=== PATIENT | male | born 1970 | race African-American/Black ===

== ENCOUNTER → 2022-07-19 09:39 | Day surgery (SDC) | payer OTHER, SELFPAY ==
[2022-07-15 14:48] VITALS: BMI 32.1
--- NOTE | 2022-07-18 14:16 | P.CONAN_ITS ---
Documented by User: Franca Camejo NP 07/18/22 14:16 HPI - Anesthesia Eval Consult details Narrative: 52yo M for Colonoscopy [facility] Past Medical History Medical History (Updated 07/15/22 @ 14:47 by Aditi Cardozo RN) Elevated cholesterol History of COVID-19 Surgical History Surgical History (Updated 07/15/22 @ 14:47 by Aditi Cardozo RN) Hx of skin graft Social History Social History Patient Tobacco Use Status: Never used Tobacco Use of substances other than those prescribed or required for medical reasons: No Are you DNR?: No Advance Directives: No Advance Directives Information Provided: Yes Meds Allergies Allergy/AdvReac Type Severity Reaction Status Date / Time No Known Allergies Allergy Verified 07/15/22 14:48 Home Medications Medication Instructions Recorded Confirmed Last Taken Type No Known Home Meds 07/15/22 07/15/22 Unknown History Exam Exam Date and Time: July 18, 2022 1416 Height,Weight and Vital Signs: Height 5 ft 10 in Weight 101.605 kg Assessment and Plan Assessment Anesthesia Assessment: Chart Reviewed Documented by User: Jose Antonio Barahona MD 07/19/22 09:56 [facility] Past Medical History Medical History (Updated 07/15/22 @ 14:47 by Aditi Cardozo RN) Elevated cholesterol History of COVID-19 Family History Family history of problems with anesthesia: No Surgical History Surgical History (Updated 07/15/22 @ 14:47 by Aditi Cardozo RN) Hx of skin graft History of Problems with Anesthesia: No Social History Social History Patient Tobacco Use Status: Never used Tobacco Use of substances other than those prescribed or required for medical reasons: No Are you DNR?: No Advance Directives: No Advance Directives Information Provided: Yes Meds Allergies Allergy/AdvReac Type Severity Reaction Status Date / Time No Known Allergies Allergy Verified 07/15/22 14:48 Home Medications Medication Instructions Recorded Confirmed Last Taken Type No Known Home Meds 07/15/22 07/15/22 Unknown History Exam Airway Mallampati Class: II TM Dist: >3cm Assessment and Plan Assessment Anesthesia Assessment: Anesthesia Plan Discussed Final Anesthetic Review Family History of Problems with Anesthesia: No History of Problems with Anesthesia: No NPO: Yes ASA Class: I Final Preanesthetic Review: No Changes in Pt Med Stat, Meds/Allgs Chart Reviewed, Consent Obtained/Reviewed and Anes Risks/Benef Reviewed Patient Risk: Low Procedure Risk: Low Anesthetic Plan Anesthetic Plan: MAC: Disposition: Standard PACU
[2022-07-19 09:47] VITALS: BMI 31.5
[2022-07-19 09:52] VITALS: BP 109/72; PULSE 68; RESP 16; TEMP 36.4; O2SAT 96
[2022-07-19] MEDS: Lactated Ringers 1,000 ML 100 ML IVCONT (10:21)
--- NOTE | 2022-07-19 10:33 | MHC.SHP ---
Pre-Procedural Eval Section A Date of Service: 07/19/22 The patient is an INPATIENT: No Changes since office visit: No Cold of Flu in the past 2 weeks, No New Medical Problems, No Changes in Medication and No Patient answered all questions The History & Physical has been completed within 30 days and I have reviewed it.: Yes Section B Chief Complaint: Encounter for screening for malignant neoplasm of Allergies: Allergies Allergy/AdvReac Type Severity Reaction Status Date / Time No Known Allergies Allergy Verified 07/15/22 14:48 Plan I have reviewed the history and physical and performed a pertinent physical examination on my patient. No changes have occurred unless specified.
--- NOTE | 2022-07-19 11:11 | P.BOP_ITS ---
Brief Operative Note Date of Service: 07/19/22 Pre-op diagnosis: screening Post-op diagnosis: same (incomplete colonoscopy) Procedure: colonoscopy to r colon Surgeon: Helder Torres Anesthesia: MAC Was an [employer] used for this Procedure?: No Estimated blood loss (mL): 0 Pathology: none sent Condition: stable Disposition: PACU
[2022-07-19 11:18] VITALS: BP 107/40; PULSE 88; RESP 18; TEMP 36.4; O2SAT 98
--- NOTE | 2022-07-19 11:19 | ECG_ITS ---
Test Reason : rhythm change Blood Pressure : / mmHG Vent. Rate : 097 BPM Atrial Rate : 000 BPM P-R Int : 000 ms QRS Dur : 096 ms QT Int : 342 ms P-R-T Axes : 000 011 012 degrees QTc Int : 434 ms Atrial fibrillation with a competing junctional pacemaker with premature ventricular or aberrantly conducted complexes Nonspecific T wave abnormality Abnormal ECG No previous ECGs available Referred By: Jose Antonio Barahona Electronically Signed By:BETH MILLER
[2022-07-19 11:33] VITALS: BP 116/59; PULSE 86; RESP 15; TEMP 36.4; O2SAT 99
[2022-07-19 11:48] VITALS: BP 114/56; PULSE 87; RESP 14; O2SAT 99
[2022-07-19 12:03] VITALS: BP 115/61; PULSE 85; RESP 12; TEMP 36.4; O2SAT 99
--- NOTE | 2022-07-20 00:31 | OP_ITS ---
SURGEON: Helder Torres MD INDICATIONS: Colon cancer screening. PREOPERATIVE DIAGNOSIS: POSTOPERATIVE DIAGNOSIS: PROCEDURE PERFORMED: Colonoscopy to the right colon. ESTIMATED BLOOD LOSS: COMPLICATIONS: ANESTHESIA: Monitored anesthesia care. ASSISTANTS: SPECIMENS: DESCRIPTION OF PROCEDURE: A history and physical performed. The risks and benefits of the procedure were explained to the patient. Informed consent was obtained. The procedure was performed on 07/19/2022. The Olympus pediatric videocolonoscope was introduced into the rectum and advanced to the right colon. The scope could be advanced no further due to looping in the sigmoid despite application of abdominal wall pressure and repositioning the patient. Examination was performed. The scope was removed. It is estimated that 80% of the colon was examined. He tolerated the procedure well and was returned to the recovery room in stable condition. FINDINGS: There was an extremely poor prep with a large amount of liquid and some undigested vegetable material, which coated the mucosa and made suctioning difficult. This was particularly noticeable in the hepatic flexure, the descending, sigmoid, and rectum. Exam was inadequate for detection of lesions. Retroflexed examination was obscured by retained liquid stool that could not be suctioned due to clogging of the scope. The procedure was extended and difficult. During the procedure, the patient was noted to have arrhythmias that were evaluated by the Anesthesia Department. IMPRESSION: Incomplete colonoscopy, poor prep. RECOMMENDATION: Repeat colonoscopy should be considered with a 2 day prep in 6-12 months. MD JEN Duron/[facility] / [id number]
== END | disposition home or self-care (01) ==
PROVIDERS: PCP Internal Medicine; Visit Provider Internal Medicine Gastroenterology
PROC: 0DJD8ZZ Inspection of Lower Intestinal Tract, Via Natural or Artificial Opening Endoscopic (ICD-10-PCS; CPT 45378; principal; 2022-07-19 10:30)
DX: Z12.11 Encounter for screening for malignant neoplasm of colon (principal); Z91.199 Patient's noncompliance with other medical treatment and regimen due to unspecified reason; I49.8 Other specified cardiac arrhythmias; E78.00 Pure hypercholesterolemia, unspecified; Z86.16 Personal history of COVID-19
CPT/HCPCS: 45378; 93005; J3010

== ENCOUNTER 2022-07-19 12:22 | Emergency (ER) | payer OTHER, SELFPAY ==
[2022-07-19 12:33] VITALS: BP 101/64; PULSE 80; RESP 16; TEMP 36.6; O2SAT 97; BMI 31.5
--- NOTE | 2022-07-19 12:35 | ECG_ITS ---
Test Reason : TACHYCARDIA Blood Pressure : / mmHG Vent. Rate : 075 BPM Atrial Rate : 075 BPM P-R Int : 188 ms QRS Dur : 088 ms QT Int : 352 ms P-R-T Axes : 044 016 045 degrees QTc Int : 393 ms Normal sinus rhythm with sinus arrhythmia Early repolarization Normal ECG When compared with ECG of 19-JUL-2022 11:16, Normal sinus rhythm has replaced Atrial fibrillation Referred By: Ysabel Harden Electronically Signed By:BETH MILLER
--- NOTE | 2022-07-19 12:38 | ED_ITS ---
HPI - Arrhythmia/Palpitations General Chief Complaint: Arrhythmia/Palpitations Stated Complaint: tachycardia Time Seen by Provider: 07/19/22 12:27 Source: patient Mode of arrival: wheelchair Limitations: no limitations History of Present Illness HPI narrative: 52 yo male with history of HLD who presents to the ER from PACU for evaluation of new onset rapid atril fibrillation while he was in routine colonoscopy today. He reportedly was found to be tachycardic 150s during the exam today. He was given Esmolol and EKG was performed showing rapid afib 110s. He was brought to the ER for further evaluation. He reports only a mild headache. He said when he woke up in recovery he had no palpitations, chest pain, SOB. Denies history of afib in the past. He arrives to the ER on NSR HR 80s. MD complaint: irregular heart beat and atrial fibrillation Onset (ago): minute(s) Duration: now resolved Severity: mild Context: other (anesthesia related) Associated symptoms: denies other symptoms Related Data Home Medications Medication Instructions Recorded Confirmed No Known Home Meds 07/15/22 07/15/22 Allergies Allergy/AdvReac Type Severity Reaction Status Date / Time No Known Allergies Allergy Verified 07/15/22 14:48 Review of Systems Review of Systems: Constitutional: No Fever, No Chills ENT/Mouth: No sore throat, No Rhinorrhea, No Swallowing Difficulty Cardiovascular: No Chest Pain, No SOB, No Orthopnea, No Edema Respiratory: No Cough, No Sputum, No Wheezing, No dyspnea, No palpitations Gastrointestinal: No Nausea, No Vomiting, No Diarrhea, No abdominal Pain Genitourinary: No Dysuria, No Urinary Frequency, No Hematuria Musculoskeletal: No joint pain, No Myalgias Skin: No Skin Lesions, No rash Neuro: No Weakness, No Numbness, No Dizziness, No Headache Heme/Lymph: No Bruising, No Lymphadenopathy PMFSH Past Medical History Medical History (Updated 07/19/22 @ 12:47 by JOHNNY Mendenhall) Elevated cholesterol History of COVID-19 Surgical History (Updated 07/15/22 @ 14:47 by Aditi Cardozo RN) Hx of skin graft Social History Social History Patient Tobacco Use Status: Never used Tobacco Physical Exam Vital Signs: Vital Signs: Last Vital Signs Temp 97.8 F 07/19/22 12:33 Pulse 80 07/19/22 12:33 Resp 16 07/19/22 12:33 BP 101/64 07/19/22 12:33 Pulse Ox 97 07/19/22 12:33 O2 Del Method 07/19/22 12:33 BMI result Body Mass Index 31.5 Appearance: Alert. Oriented X3. No acute distress. Eyes: Pupils equal, round and reactive to light. ENT: Pharynx normal. Neck: Normal inspection. Neck supple. CVS: Normal heart rate and rhythm. Pulses normal. Respiratory: No respiratory distress. Breath sounds normal. Abdomen: Soft and nontender. +BS x4 Skin: Skin warm and dry. Normal skin color. Normal skin turgor. No rashes. Extremities: No lower extremity edema. Neuro: Oriented X 3. No motor deficit. No sensory deficit. Course Course Course Narrative: 52 yo male with history of recently diagnosed HLD, diet controlled for now who presents with new onset rapid afib while in colonoscopy today, back in sinus after esmolol. CHADSVASC is 0, no recommendation for anticoagulation at this time. Will repeat EKG and monitor on telemetry. Anticipate d/c home with outpatient cardiology follow up. Reevaluation(s) Reevaluation #1: Remains in sinus and asymptomatic, while monitored in the ER. Case d/w Dr. Burgos - plan for d/c home on asa 81 and cardiology follow up. patient agrees with plan. stable for d/c. MDM - Arrhythmia/Palpitations Medical Records Attestation: I reviewed the patient's medical records. Lab Data Attestation: I reviewed the patient's lab results. ECG Data Attestation: I personally reviewed and interpreted this ECG as follows: ECG interpretation date: 07/19/22 ECG interpretation time: 13:01 Prior ECG tracings: not available for review Interpretation: sinus rhythm with sinus arrythmia, HR 75 bpm, Q wave present in lead III, normal AK interval, normal QRS, no ST segment elevations or depressions Discharge Plan Discharge Clinical Impression: Paroxysmal A-fib Patient Disposition: Home, Self-Care Instructions: A-fib (Atrial Fibrillation) (DC) Additional Instructions: Your stroke risk is low - no anticoagulation is recommended at this time Recommend following up with Cardiology for further evaluation - name and number below. call for an appointment Recommend you start a baby aspirin in the mean time If you develop new or worsening symptoms call 911 or come back to the ER for further evaluation. Prescriptions: No Action No Known Home Meds Referrals: [facility] [place] [facility] [Provider Group] (PAF)
[2022-07-19] MEDS: Acetaminophen 325 MG TABLET 975 MG PO (13:01)
== END 2022-07-19 13:48 | disposition home or self-care (01) ==
PROVIDERS: Emergency Provider Emergency Medicine Emergency Medical Services; PCP Internal Medicine
DX: I48.0 Paroxysmal atrial fibrillation (principal); R00.2 Palpitations; R00.0 Tachycardia, unspecified
CPT/HCPCS: 93005; 99283; 99284

== ENCOUNTER 2025-06-16 10:35 | Outpatient (REF) | payer OTHER, SELFPAY ==
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
--- OUTSIDE RECORDS SUMMARY | 2025-06-16 12:06 | XMS_ITS | Clinical Summary ---
Author Organization [employer] [facility] Address [address] [place] [phone] Phone Care Team Providers Care Wood Engraver Name Role Phone Italo Gilbert MD Primary Care Provider [phone] Allergies No known active allergies Medications No known medications Active Problems Problem Noted Date Diagnosed Date Positive blood cultures 02/21/2021 Assessment & Plan (02/23/2021 6:37 PM EDT): More likely contaminant, with each bottle growing staph hominis and repeat blood cultures negative --Antibiotics have been stopped Pneumonia of both lungs due to infectious organi sm 02/20/2021 COVID-19 02/19/2021 Assessment & Plan (02/23/2021 6:36 PM EDT): Acute respiratory failure secondary to COVID-19 infection. Chest x-ray shows bilateral pulmonary opacities consistent with COVID-19 pneumonia. He continues to have a significant oxygen requirement of 3 L with exertional hypoxia and shortness of breath. --Continue remdesivir day #4/5, dexamethasone day #5 --Following LFTs, slight rise today --O2 support as needed --Throat spray for pharyngeal pain Family History Medical History Relation Comments Arthritis Father Diabetes Mother Relation Status Comments Father Alive Mother Alive Social History Tobacco Use Types Packs/Day Years Used Date Smoking Tobacco: Never Smokeless Tobacco: Never Alcohol Use Standard Drinks/Week Comments Not Currently 0 (1 standard drink = 0.6 oz pur e alcohol) Education Answer Date Recorded Are you interested in more education? Not on kayli e 02/07/2023 Are you concerned about learning? Not on file 02/07/2023 No 02/07/2023 No 02/07/2023 Digital Access Answer Date Recorded No 03/08/2023 No 03/08/2023 No 03/08/2023 Reliable internet access at home? Not on file 03/08/2023 Device with a working camera? Not on file Sex and Gender Information Value Date Recorded Sex Assigned at Male 07/23/2022 7:16 PM EDT Legal Sex Male 9:09 AM EDT Gender Identity Male 07/23/2022 7:16 PM EDT Sexual Orientation Not on file Last Filed Vital Signs Vital Sign Reading Time Taken Comments Blood Pressure 129/74 07/23/2022 10:00 PM EDT Pulse 62 07/23/2022 10:00 PM EDT Temperature 37.2 C (99 F) 07/23/2022 7:14 PM EDT Respiratory Rate 12 07/23/2022 10:00 PM EDT Oxygen Saturation 100% 07/23/2022 10:00 PM EDT Inhaled Oxygen Concentration - - Weight 99.8 kg (220 lb) 07/23/2022 7:14 PM EDT Height 177.8 cm (5' 10 ) 07/23/2022 7:14 PM EDT Body Mass Index 31.57 07/23/2022 7:14 PM EDT Plan of Treatment Health Maintenance Due Date Last Done Comments Adult Td,Tdap Booster 1971 LIPID PANEL 1971 DEPRESSION SCREENING 1983 HEPATITIS C SCREENING 1989 HIV ONE-TIME SCREENING (18-6 5 YEARS) 1989 COLOGUARD 2016 COLONOSCOPY 2016 COLORECTAL CANCER SCREENING 2016 FIT TEST 2016 FOBT 2016 SIGMOIDOSCOPY 2016 VIRTUAL COLONOSCOPY 2016 PNEUMOCOCCAL VACCINES (50+ years) (1 of 1 - PCV) 2021 ZOSTER VACCINES (1 of 2) 2021 INFLUENZA VACCINE (#1) 2025 COVID-19 VACCINE (3 - 2024-2 6 season) 2025 04/09/2021, 03/19/2021 SCREENING FOR DIABETES 07/23/2025 07/23/2022 SMOKING STATUS SCREENING (On ce After 26 Yrs) Completed 07/23/2022 HEPATITIS A VACCINES Aged Out No long er eligible based on patient's age to complete this topic HIB VACCINES Aged Out No longer eligi ble based on patient's age to complete this topic MENINGOCOCCAL VACCINES (ACWY) Aged Out No longer eligible based on patient's age to complete this topic MENINGOCOCCAL VACCINES (B) Aged Out N o longer eligible based on patient's age to complete this topic Medical Devices Not on file Insurance [employer] Advance Directives For more information, please contact: [phone] (9AM - 5PM Radha/[facility], Friday-Friday) * Full Code (Latest Code Status on File) Date Activated Date Inactivated Comments 02/20/2021 12:05 AM Question Answer Comments Code Status Confirmed With: Patient Care Teams Wood Engraver Relationship Specialty Start Date End Date Italo Gilbert MD [address] [place] [phone] PCP - General Internal Medicine 07/23/22 Additional Source Comments The information contained in this document represents components of the legal health record. It is not the complete legal health record.[facility]
--- OUTSIDE RECORDS SUMMARY | 2025-06-16 12:07 | XMS_ITS | Clinical Summary ---
Author Organization [employer] Address [address] [facility] [address] [place] [address] Care Team Providers Care Hot Metal Crane Operator Name Role Phone Rosalio Lopez MD Primary Care Provide r Allergies Active Allergy Reactions Criticality Noted Date Comments Propofol Palpitations Low 06/16/2025 Medications terazosin (Hytrin) 1 MG capsuleIndicati ons:Urinary urgency Take 1 capsule (1 mg) by mouth at bedtime. 30 capsule 11 06/16/2025 Active Active Problems Problem Noted Date Diagnosed Date Hypercholesterolemia 06/16/2025 Assessment & Plan (06/16/2025 10:17 AM EDT): - Previously noted high cholesterol during last visit with prior physician - No medication taken for cholesterol, managed with lifestyle changes Plan: Repeat Lipid profile Urinary urgency 06/16/2025 Assessment & Plan (06/16/2025 10:18 AM EDT): - Onset of urinary urgency, described as strong urge to urinate with pressure, occurring both day and night - No incontinence or accidents, but concern about possible leakage if unable to reach restroom quickly - 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 - Prescribed terazosin 1 mg daily. Ordered urinalysis and PSA blood test. Advised follow-up visit. Referral to urology discussed if symptoms persist or worsen. Preventative health care 06/16/2025 Assessment & Plan (06/16/2025 10:21 AM EDT): PSA ordered Colonoscopy: incomplete due to poor [...] interested. Scheduled follow-up physical in three months. Chronic jaw pain 06/16/2025 Assessment & Plan (06/16/2025 10:18 AM EDT): Chronic jaw discomfort possibly related to temporomandibular joint (TMJ) disorder. - Ordered plain film x-ray of the jaw. Recommended dental evaluation for further assessment and possible Panorex imaging. Advised consideration of mouth guard if TMJ confirmed. History of atrial fibrillation 06/16/2025 Assessment & Plan (06/16/2025 10:24 AM EDT): Patient developed A.fib during colonoscopy procedure according to ER notes GI requested Cardiology clearance prior to repeat colonoscopy that was incomplete Encounters Date Type Department Care Team Description 06/16/2025 9:30 AM EDT Office Visit [facility] [address] [place] [phone] Rosalio Lopez MD Urinary urgency (Primary Dx); Chronic jaw pain; Hypercholesterolemia; History of atrial fibrillation; Preventative health care; Colon cancer screening; Encounter for immunization 06/16/2025 Travel 06/09/2025 Patient Outreach [facility] [address] [place] [address] Rosalio Lopez MD Pre-visit Planning (SDOH will need to be completed in office. ) 06/09/2025 Travel 04/08/2025 Telephone [facility] [address] [place] [address] Rosalio Lopez MD new patient visit from Last 3 Months Immunizations Immunization Administration Dates Next Due Pneumococcal Conjugate PCV 20 06/16/2025 Social History Tobacco Use Types Packs/Day Years [...] t he electric, gas, oil or water company threatened to shut off services in your [...] Orientation Straight 03/08/2025 2: 18 PM EDT Last Filed Vital Signs Vital Sign Reading [...] Mass Index 32.71 06/16/2025 9:41 AM EDT Plan of Treatment Health Maintenance Due Date Last Done Comments CT Colonography 1971 Colonoscopy 1971 Colorectal Cancer Screening 1971 FIT DNA/Cologuard 1971 FIT 1971 FOBT 1971 HIV Screening 1971 Lipid Panel 1971 Sigmoidoscopy 1971 Hepatitis C Screening 1989 Hepatitis B Vaccines (1 of 3 - 19+ 3-dose series) 1990 Zoster Vaccines (1 of 2) 2021 Influenza Vaccine (#1) 2025 Alcohol/Substance Use Screening 06/16/2026 06/16/2025 Depression Screening 06/16/2026 06/16/2025, 06/16/2025 Disability Screening 06/16/2026 06/16/2025 SDOH Screening 06/16/2026 06/16/2025 Tobacco Screening 06/16/2026 06/16/2025 DTaP/Tdap/Td Vaccines (2 - T d or Tdap) 06/13/2034 06/13/2024 RSV Patients and Patients Aged 60 years or older (1 - 1-dose 75+ series) 2046 COVID-19 Vaccine Completed 06/13/2024, 04/09/2021, 03/19/2021 Pneumococcal Vaccine: 50+ Years Completed 06/16/2025 HIB Vaccines Aged Out No longer eligi ble based on patient's age to complete this topic HPV Vaccines Aged Out No longer eligi ble based on patient's age to complete this topic Hepatitis A Vaccines Aged Out No long er eligible based on patient's age to complete this topic IPV Vaccines Aged Out No longer eligi ble based on patient's age to complete this topic Meningococcal B Vaccine Aged Out No l onger eligible based on patient's age to complete this topic Meningococcal Vaccine Aged Out No stacy damián eligible based on patient's age to complete this topic RSV under 20 months Aged Out No longe r eligible based on patient's age to complete this topic Rotavirus Vaccines Aged Out No longer eligible based on patient's age to complete this topic Insurance [facility] 3 Care Teams Hot Metal Crane Operator Relationship Specialty Start Date End Date Rosalio Lopez MD [address] [place] [address] PCP - General Internal Medicine 06/16/25
--- OUTSIDE RECORDS SUMMARY | 2025-06-16 12:07 | XMS_ITS | Encounter Summary ---
Author Organization [employer] Address [address] [place] [address] Care Team Providers Care Power Reactor Operator Name Role Phone Rosalio Lopez MD Primary Care Provide Encounter Details Date Type Department Care Team (Latest Contact Info) Description 06/16/2025 Travel Social History Tobacco Use Types Packs/Day Years Used Date Smoking Tobacco: Never Smokeless Tobacco: Never Alcohol Use Standard Drinks/Week Comments Never 0 (1 standard drink = 0.6 oz pur e alcohol) Depression Answer Date Recorded Patient Health Questionnaire-9 Score 0 06/16/2025 Patient Health Questionnaire-9 Score 0 06/16/2025 Last PHQ-9: Questionnaire Data Not on file 0 06/16/2025 Housing Stability Answer Date Recorded What is your housing situation today? I have nathan sing 06/16/[address] you li [...] PM EDT documented as of this encounter Functional Status * Over the [...] Senior [place] documented as of this encounter Plan of Treatment Not on file documented as of this encounter Visit Diagnoses Not on filedocumented in this encounter Additional Health Concerns Assessment Noted Time PHQ-9 Depression Total Score: 0 06/16/20 9:43 AM EDT documented as of this encounter Care Teams Power Reactor Operator Relationship Specialty Start Date End Date Rosalio Lopez MD [address] [place] [phone] PCP - General Internal Medicine 06/16/25 documented as of this encounter
[2025-06-16 14:04] LABS: Alanine Aminotransferase 23 U/L (0-40); Albumin Level 4.2 g/dL (3.5-5.0); Alkaline Phosphatase 72 U/L (39-117); Anion Gap 10 (12-20); Aspartate Amino Transferase 33 U/L (5-37); Blood Urea Nitrogen 9 mg/dL (9-16); Calcium 8.9 mg/dL (8.4-10.2); Carbon Dioxide 27 mmol/L (22-29); Chloride 106 mmol/L (96-108); Cholesterol 184 mg/dL (<200); Estimated Glomerular Filt Rate > 60; HDL Cholesterol 30 mg/dL (>40); Potassium 3.7 mmol/L (3.3-5.1); Sodium 139 mmol/L (135-145); Total Protein 7.6 g/dL (6.5-8.0); Triglycerides 141 mg/dL (<150)
[2025-06-17 04:28] LABS: HIV Num 1 0.05 S/CO (0.00-0.99); ~HepC Num1 0.11 S/CO (0.00-0.79); ~Hepatitis C Antibody Nonreactive (Nonreactive)
== END 2025-06-16 10:36 | disposition home or self-care (01) ==
LOC: HO.HHCL 10:35
PROVIDERS: PCP Internal Medicine; Visit Provider Internal Medicine
DX: Z00.00 Encounter for general adult medical examination without abnormal findings (principal); E78.00 Pure hypercholesterolemia, unspecified; R39.15 Urgency of urination
CPT/HCPCS: 36415; 80053; 80061; 84153; 86803; 87389

== ENCOUNTER 2025-06-21 11:42 | Outpatient (REF) | payer OTHER, SELFPAY ==
--- OUTSIDE RECORDS SUMMARY | 2025-06-16 09:30 | XMS_ITS | Encounter Summary ---
Author Organization [employer] Address [address] [facility] [address] [place] [address] Care Team Providers Care Highway Worker Name Role Phone Rosalio Lopez MD Primary Care Provide r Reason for Referral * Consultation (Routine) - Authorized Specialty Diagnoses / Procedures Referred By Skinny walker Referred To Contact Cardiology Diagnoses History of atrial fibrillation Rosalio Lopez MD [address] [place] [address] Phone: tel: fax: [facility] Referral ID Status Reason Start Date Expiration Date Visits Requested Visits Authorized [id number] Authorized Specialty Services Required 06/16/2025 06/16/2026 1 1 * Consultation (Routine) - Closed Specialty Diagnoses / Procedures Referred By Skinny walker Referred To Contact Gastroenterology Diagnoses Colon cancer screening Rosalio Lopez MD [address] [place] [address] Phone: tel: fax: Helder Torres MD [address] [place] [address] Phone: tel: fax: Referral ID Status Reason Start Date Expiration Date V isits Requested Visits Authorized [id number] Closed Specialty Services Required 06/16/2025 06/16/2026 1 1 Reason for Visit * Reason Comments new pt Encounter Details Date Type Department Care Team (Late st Contact Info) Description 06/16/2025 9:30 AM EDT Office Visit [facility] [address] [place] [address] Rosalio Lopez MD [address] [place] [address] Urinary urgency (Primary Dx); Chronic jaw pain; [...] t he electric, gas, oil or water [employer] threatened to shut off services in your [...] original note were not included. SUBJECTIVE Blayne Herron is a 54 y.o. male who presents for new pt. 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, requiring timing of fluid intake - [...] Type Priority Associated Diagnoses Orde r Schedule XR panorex Imaging Routine Chronic jaw pain Ordered: 06/16/2025 Scheduled Referrals Name Type Priority Associated Diagnoses Order Schedule Referral to Gastroenterology Outpatient Referral Routine Colon cancer screening Expected: 06/16/2025 (Approximate), Expires: 06/16/2026 Referral to Cardiology Outpatient Referral Routine History of atrial fibrillation Expected: 06/16/2025 (Approximate), Expires: 06/16/2026 documented as of this encounter Procedures Procedure Name Priority Date/Time Associated Diagnosis Comments URINALYSIS, COMPLETE, WITH REFLEX TO CULTURE Routine 06/21/2025 11:46 AM EDT Urinary urgency PSA, SCREEN Routine 06/16/2025 11:21 AM EDT Urinary urgency HEPATITIS C AB W/REFL TO HCV RNA, QN, PCR Routine 06/16/2025 11:21 AM EDT Preventative health care HIV 1/2 ANTIGEN/ANTIBODY, FOURTH GENERATION W/RFL Routine 06/16/2025 11:21 AM EDT Preventative health care LIPID PANEL, STANDARD Routine 06/16/2025 11:21 AM EDT Hypercholesterolem ia COMPREHENSIVE METABOLIC PANEL Routine 06/16/2025 11:21 AM EDT Hypercholesterolem ia documented in this encounter Results * Urinalysis, Complete, with Reflex to Culture (06/21/2025 11:46 AM EDT) Color Urine Yellow [facility] Appearance Urine Clear [facility] PH 8.5 5.0 - 9.0 [facility] Glucose Urine UA Negative Negative mg/dL [facility] Urine Blood Negative Negative [facility] Specific [place] - Urine 1.010 1.005 - 1.025 [facility] Urine Protein Negative Neg-Trace mg/dL [facility] Urine Ketones Negative Negative mg/dL [facility] Nitrite Urine Negative Negative [facility] Leukocyte Esterase Urine Negative Negative [facility] RBC Urine 0-2 0 - 2 /HPF [facility] Urine WBC 0-5 0 - 5 /HPF [facility] Urine Squamous Epithelial Cell 0-2 0 - 2 /HPF [facility] Urine Bacteria None Seen None Seen [facility] Hyaline Casts, Urine 0-2 0 - 2 /LPF [facility] Urine 06/21/2025 11:4 6 AM EDT 06/21/2025 1:18 PM EDT Narrative [facility] - 06/21/2025 1:36 PM EDT Urine, Clean Catch us Rosalio Henson MD LAB URINE ORDERABLES Final Result [facility] [address], [place] [phone] * HIV-1/2 Antigen and Antibodies, Fourth Generation, with Reflexes (06/16/2025 11:21 AM EDT) HIV AB/AG Nonreactive Nonreactive [facility] Comment:HIV-1 p24 Ag and/or HIV-1/HIV-2 Ab not detected.A test result that is nonreactive does not exclude thepossibility of exposure to or infection with HIV-1 and/orHIV-2. Nonreactive results in this assay for individualswith prior exposure to HIV-1 and/or HIV-2 may be due toantigen and antibody levels that are below the limit ofdetection of this assay.The [employer] HIV Ag/Ab Combo assay result andsupplemental assay results should be interpreted inconjunction with the patient's clinical presentation,history and other laboratory results. If the results areinconsistent with clinical evidence, additional testing issuggested to confirm the result. Blood Venous blood specimen / Unknown 06/16/2025 11:21 AM EDT 06/16/2025 1:28 PM EDT Rosalio Henson MD LAB BLOOD ORDERABLES Final Result Performing Organization Address City/[facility]/ZIP Co de Phone Number [facility] [address] [place] [phone] * Hepatitis C Antibody with Reflex to HCV, RNA, Quantitative, Real-Time PCR (06/16/2025 11:21 AM EDT) Pathologist [facility] Hepatitis C Antibody Nonreactive Nonreactive [facility] Comment:Antibodies to HCV no t detected; does not exclude early acuteHCV infection. Blood Venous blood specimen / Unknown 06/16/2025 11:21 AM EDT 06/16/2025 1:28 PM EDT Rosalio Henson MD LAB BLOOD ORDERABLES Final Result Performing Organization Address [facility] Co de Phone Number [facility] [address] [place] [phone] * PSA, Screen (06/16/2025 11:21 AM EDT) Pathologist [facility] PSA, Total 0.31 <0.05 - 4.0 ng/mL [facility] Comment:PSA methodology: Abb mansoor Alialyssaty i ChemiluminescentMicroparticle Immunoassay (CMIA) Blood Venous blood specimen / Unknown 06/16/2025 11:21 AM EDT 06/16/2025 1:28 PM EDT us Rosalio Henson MD LAB BLOOD ORDERABLES Final Result [facility] [address] [place] [phone] * (ABNORMAL) Comprehensive Metabolic Panel (06/16/2025 11:21 AM EDT) Sodium 139 135 - 145 mmol/L [facility] Potassium 3.7 3.3 - 5.1 mmol/L [facility] Chloride 106 96 - 108 mmol/L [facility] Carbon Dioxide 27 22 - 29 mmol/L [facility] Anion Gap 10(L) 12 - 20 [facility] Urea Nitrogen (BUN) 9 9 - 16 mg/dL [facility] Creatinine, Serum 1.07 0.5 - 1.4 mg/dL [facility] Estimated Glomerular Filt Rate >60 [facility] Comment:Chronic Kidney Disea se: Estimated GFR < 60 mL/min/1.00d8Mtalzy Kidney Disease: Estimated GFR < 15 mL/min/1.73m2 Glucose 90 60 - 115 mg/dL [facility] Calcium 8.9 8.4 - 10.2 mg/dL [facility] Bilirubin, Total 0.6 0.0 - 1.0 mg/dL [facility] Aspartate Amino Transferase 33 5 - 37 U/L [facility] Alanine Aminotransferase 23 0 - 40 U/L [facility] Total Protein 7.6 6.5 - 8.0 g/dL [facility] Albumin Level 4.2 3.5 - 5.0 g/dL [facility] Alkaline Phosphatase 72 39 - 117 U/L [facility] Blood Venous blood specimen / Unknown 06/16/2025 11:21 AM EDT 06/16/2025 1:28 PM EDT us Rosalio Henson MD LAB BLOOD ORDERABLES Final Result Performing Organization Address [facility]/ZIP Co de Phone Number [facility] [address] [place] [phone] [phone] * (ABNORMAL) Lipid Panel, Standard (06/16/2025 11:21 AM EDT) Triglycerides 141 <150 mg/dL [facility] Comment:Desirable Triglyceri de: less than 150 mg/dLBorderline High Triglyceride 150-199 mg/dLHigh Triglyceride: 200-499 mg/dLVery High Triglyceride: greater than or equal to 5OO mg/dL Cholesterol 184 <200 mg/dL [facility] Comment:Desirable Cholestero l: less than 200 mg/dLBorderline High Cholesterol: 200-239 mg/dLHigh Cholesterol: greater than 239 mg/dL LDL Cholesterol Calculated 126(H) <100 mg/dL [facility] Comment:Desirable LDL: less than 100 mg/dLNear Optimal/Above Optimal LDL: 110- 129 mg/dLBorderline High LDL: 130-159 mg/dLHigh LDL: 160-189 mg/dLVery High LDL: greater than or equal to 190 mg/dL HDL Cholesterol 30(L) >40 mg/dL [facility] Comment:Desirable HDL: great er than 40 mg/dL Note: This HDL assay may give artificially low results in patients with liver disease. Blood Venous blood specimen / Unknown 06/16/2025 11:21 AM EDT 06/16/2025 1:28 PM EDT us Rosalio Henson MD LAB BLOOD ORDERABLES Final Result Performing Organization Address City/[facility]/ZIP Co de Phone Number [facility] [address] [place] [phone] documented in this encounter Visit Diagnoses Diagnosis Urinary urgency- [...] documented as of this encounter Care Teams Highway Worker Relationship Specialty Start Date End Date Rosalio Lopez MD [address] [place] [address] PCP - General Internal Medicine 06/16/25 documented as of this encounter
[2025-06-21 13:25] LABS: Appearance Urine Clear; Glucose Urine UA Negative (Negative); PH 8.5 (5.0-9.0); Specific Gravity - Urine 1.010 (1.005-1.025)
--- OUTSIDE RECORDS SUMMARY | 2025-06-21 14:16 | XMS_ITS | Encounter Summary ---
Author Organization [employer] Address [address] [facility] [facility] [address] [place] [address] Care Team Providers Care Microarray Specialist Name Role Phone Rosalio Lopez MD Primary [...] documented as of this encounter Care Teams Microarray Specialist Relationship Specialty Start Date End Date Rosalio Lopez MD [address] [place] [phone] PCP - General Internal Medicine 06/16/25 documented as of this encounter
--- OUTSIDE RECORDS SUMMARY | 2025-06-21 14:16 | XMS_ITS | Clinical Summary ---
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, requiring timing of fluid intake - [...] Description 06/16/2025 9:30 AM EDT Office Visit [facility] [address] [place] [phone] Rosalio Lopez MD Urinary urgency (Primary Dx); Chronic jaw pain; Hypercholesterolemia; History of atrial fibrillation; Preventative health care; Colon cancer screening; Encounter for immunization 06/16/2025 Travel 06/09/2025 Patient Outreach [facility] [address] [place] [address] Rosalio Lopez MD Pre-visit Planning (SDOH will need to be completed in office. ) 06/09/2025 Travel 04/08/2025 Telephone [facility] [address] [place] [address] Rosalio Lopez MD new patient visit from [...] FIT DNA/Cologuard 1971 FIT 1971 FOBT 1971 Sigmoidoscopy 1971 Hepatitis B Vaccines (1 of 3 - 19+ 3-dose series) 1990 Zoster Vaccines (1 of 2) 2021 Influenza Vaccine (#1) 2025 Alcohol/Substance Use Screening 06/16/2026 06/16/2025 Depression Screening 06/16/2026 06/16/2025, 06/16/2025 Disability Screening 06/16/2026 06/16/2025 SDOH Screening 06/16/2026 06/16/2025 Tobacco Screening 06/16/2026 06/16/2025 Lipid Panel 06/16/2030 06/16/2025 DTaP/Tdap/Td Vaccines (2 - T d or Tdap) 06/13/2034 06/13/2024 RSV Patients and Patients Aged 60 years or older (1 - 1-dose 75+ series) 2046 COVID-19 Vaccine Completed 06/13/2024, 04/09/2021, 03/19/2021 HIV Screening Completed 06/16/2025 Hepatitis C Screening Completed 06/16/2025 Pneumococcal Vaccine: 50+ Years Completed 06/16/2025 HIB [...] on patient's age to complete this topic Procedures Procedure Name Priority Date/Time Associated Diagnosis Comments URINALYSIS, COMPLETE, WITH REFLEX TO CULTURE Routine 06/21/2025 11:46 AM EDT Urinary urgency HIV 1/2 ANTIGEN/ANTIBODY, FOURTH GENERATION W/RFL Routine 06/16/2025 11:21 AM EDT Preventative health care HEPATITIS C AB W/REFL TO HCV RNA, QN, PCR Routine 06/16/2025 11:21 AM EDT Preventative health care PSA, SCREEN Routine 06/16/2025 11:21 AM EDT Urinary urgency COMPREHENSIVE METABOLIC PANEL Routine 06/16/2025 11:21 AM EDT Hypercholesterolem ia LIPID PANEL, STANDARD Routine 06/16/2025 11:21 AM EDT Hypercholesterolem ia from Last 3 Months Results * Urinalysis, Complete, with Reflex to Culture (06/21/2025 11:46 AM EDT) Color Urine Yellow [facility] Appearance Urine Clear [facility] PH 8.5 5.0 - 9.0 [facility] Glucose Urine UA Negative Negative mg/dL [facility] Urine Blood Negative Negative [facility] Specific [place] - Urine 1.010 1.005 - 1.025 [facility] Urine Protein Negative Neg-Trace mg/dL [facility] Urine Ketones Negative Negative mg/dL [facility] Nitrite Urine Negative Negative [facility] Leukocyte Esterase Urine Negative Negative [facility] RBC Urine 0-2 0 - 2 /HPF [facility] Urine WBC 0-5 0 - 5 /HPF [facility] Urine Squamous Epithelial Cell 0-2 0 - 2 /HPF [facility] Urine Bacteria None Seen None Seen [facility] Hyaline Casts, Urine 0-2 0 - 2 /LPF [facility] Urine 06/21/2025 11:4 6 AM EDT 06/21/2025 1:18 PM EDT Narrative [facility] - 06/21/2025 1:36 PM EDT Urine, Clean Catch us Rosalio Henson MD LAB URINE ORDERABLES Final Result Performing Organization Address [facility] Co de Phone Number [facility] [address] [place] [phone] * PSA, Screen (06/16/2025 11:21 AM EDT) PSA, Total 0.31 <0.05 - 4.0 ng/mL [facility] Comment:PSA methodology: Ren Granda i ChemiluminescentMicroparticle Immunoassay (CMIA) Blood Venous blood specimen / Unknown 06/16/2025 11:21 AM EDT 06/16/2025 1:28 PM EDT Rosalio Henson MD LAB BLOOD ORDERABLES Final Result Performing Organization Address [facility] Co de Phone Number [facility] [address] [place] [phone] * Hepatitis C Antibody with Reflex to HCV, RNA, Quantitative, Real-Time PCR (06/16/2025 11:21 AM EDT) Hepatitis C Antibody Nonreactive Nonreactive [facility] Comment:Antibodies to HCV no t detected; does not exclude early acuteHCV infection. Blood Venous blood specimen / Unknown 06/16/2025 11:21 AM EDT 06/16/2025 1:28 PM EDT us Rosalio Henson MD LAB BLOOD ORDERABLES Final Result Performing Organization Address City/[facility]/ZIP Co de Phone Number [facility] [address] [place] [phone] * HIV-1/2 Antigen and Antibodies, Fourth Generation, with Reflexes (06/16/2025 11:21 AM EDT) HIV AB/AG Nonreactive Nonreactive [facility] Comment:HIV-1 p24 Ag and/or HIV-1/HIV-2 Ab not detected.A test result that is nonreactive does not exclude thepossibility of exposure to or infection with HIV-1 and/orHIV-2. Nonreactive results in this assay for individualswith prior exposure to HIV-1 and/or HIV-2 may be due toantigen and antibody levels that are below the limit ofdetection of this assay.The [employer] HIV Ag/Ab Combo assay result andsupplemental assay results should be interpreted inconjunction with the patient's clinical presentation,history and other laboratory results. If the results areinconsistent with clinical evidence, additional testing issuggested to confirm the result. Blood Venous blood specimen / Unknown 06/16/2025 11:21 AM EDT 06/16/2025 1:28 PM EDT us Rosalio Henson MD LAB BLOOD ORDERABLES Final Result [facility] [address] [place] [phone] * (ABNORMAL) Lipid Panel, Standard (06/16/2025 11:21 AM EDT) Triglycerides 141 <150 mg/dL [facility] Comment:Desirable Triglyceri de: less than 150 mg/dLBorderline High Triglyceride 150-199 mg/dLHigh Triglyceride: 200-499 mg/dLVery High Triglyceride: greater than or equal to 5OO mg/dL Cholesterol 184 <200 mg/dL [facility] Comment:Desirable Cholestero l: less than 200 mg/dLBorderline High Cholesterol: 200-239 mg/dLHigh Cholesterol: greater than 239 mg/dL LDL Cholesterol Calculated 126(H) <100 mg/dL [facility] Comment:Desirable LDL: less than 100 mg/dLNear Optimal/Above Optimal LDL: 110- 129 mg/dLBorderline High LDL: 130-159 mg/dLHigh LDL: 160-189 mg/dLVery High LDL: greater than or equal to 190 mg/dL HDL Cholesterol 30(L) >40 mg/dL [facility] Comment:Desirable HDL: great er than 40 mg/dL Note: This HDL assay may give artificially low results in patients with liver disease. Blood Venous blood specimen / Unknown 06/16/2025 11:21 AM EDT 06/16/2025 1:28 PM EDT us Rosalio Henson MD LAB BLOOD ORDERABLES Final Result [facility] [address] [place] [phone] * (ABNORMAL) Comprehensive Metabolic Panel (06/16/2025 11:21 AM EDT) Sodium 139 135 - 145 mmol/L [facility] Potassium 3.7 3.3 - 5.1 mmol/L [facility] Chloride 106 96 - 108 mmol/L [facility] Carbon Dioxide 27 22 - 29 mmol/L [facility] Anion Gap 10(L) 12 - 20 [facility] Urea Nitrogen (BUN) 9 9 - 16 mg/dL [facility] Creatinine, Serum 1.07 0.5 - 1.4 mg/dL [facility] Estimated Glomerular Filt Rate >60 [facility] Comment:Chronic Kidney Disea se: Estimated GFR < 60 mL/min/[id number] Kidney Disease: Estimated GFR < 15 mL/min/1.73m2 Glucose 90 60 - 115 mg/dL [facility] Calcium 8.9 8.4 - 10.2 mg/dL [facility] Bilirubin, Total 0.6 0.0 - 1.0 mg/dL [facility] Aspartate Amino Transferase 33 5 - 37 U/L [facility] Alanine Aminotransferase 23 0 - 40 U/L [facility] Total Protein 7.6 6.5 - 8.0 g/dL [facility] Albumin Level 4.2 3.5 - 5.0 g/dL [facility] Alkaline Phosphatase 72 39 - 117 U/L [facility] Blood Venous blood specimen / Unknown 06/16/2025 11:21 AM EDT 06/16/2025 1:28 PM EDT us Rosalio Henson MD LAB BLOOD ORDERABLES Final Result [facility] [address] [place] [phone] from Last 3 Months Insurance [facility] 3 Care Teams Bdr Relationship Specialty Start Date End Date Rosalio Lopez MD [address] [place] [phone] PCP - General Internal Medicine 06/16/25
--- OUTSIDE RECORDS SUMMARY | 2025-06-21 14:16 | XMS_ITS | Clinical Summary ---
Author Organization [email or web address] [facility] Address [address] [place] [phone] Phone Care Team Providers Care Boilerhouse Mechanic Name Role Phone Italo Gilbert MD Primary Care Provider [phone] Allergies No known active allergies Medications No [...] topic Medical Devices Not on file Insurance [employer] Ag[employer]ys Ag[employer]ys Ag[employer]ys Ag[employer]ys Ag[employer]ys Ag[employer]ys Ag[employer] Advance Directives For more information, please contact: [phone] (9AM - 5PM [facility], Friday-Friday) * Full Code (Latest Code Status on File) Date Activated Date Inactivated Comments 02/20/2021 12:05 AM Question Answer Comments Code Status Confirmed With: Patient Care Teams Boilerhouse Mechanic Relationship Specialty Start Date End Date Italo Gilbert MD [address] [place] [phone] PCP - General Internal Medicine 07/23/22 Additional Source Comments The information contained in this document represents components of the legal health record. It is not the complete legal health record.[facility]
== END 2025-06-21 11:43 | disposition home or self-care (01) ==
LOC: HO.HHCL 11:42
PROVIDERS: PCP Internal Medicine; Visit Provider Internal Medicine
DX: R39.15 Urgency of urination (principal)
CPT/HCPCS: 81001